=== PATIENT | male | born 1945 | race Caucasian/White ===

== ENCOUNTER → 2020-07-18 13:44 | Outpatient (CLI) | payer MEDICARE, OTHER, SELFPAY ==
[2020-06-29 13:30] VITALS: BMI 24.9
--- NOTE | 2020-07-18 13:45 | ECHOD_ITS ---
Reason For Study: MURMUR Procedure This was a 2D Doppler, Color Flow transthoracic echocardiogram. The exam was of adequate technical quality. Exam performed in department. Left Ventricle Normal LV size. Left ventricular systolic function is normal. The estimated ejection fraction is 60 %. Diastolic function is indeterminate. No regional wall motion abnormalities noted. Right Ventricle Normal RV size. ICD or pacer leads identified within the right ventricle. Normal systolic function. Atria Normal left atrium. Normal right atrium. ICD or pacer leads identified within the right atrium. No doppler evidence for ASD. Mitral Valve There is no mitral annular calcification. Equivocal mitral valve prolapse. Mild (1+) mitral valve insufficiency. Tricuspid Valve Normal tricuspid valve. Trivial tricuspid valve insufficiency. Right ventricular systolic pressure estimated to be 22 mmHg. Aortic Valve Trisinus/trileaflet aortic valve. Mild diffuse aortic valve thickening. Mild diffuse aortic valve calcification. Aortic valve sclerosis/mild aortic valve stenosis. Pulmonic Valve The pulmonic valve is not well visualized. Trivial pulmonic valve insufficiency. Great Vessels Mildly dilated aortic root. Pericardium/Pleural No pericardial effusion. MMode/2D Measurements & Calculations LVIDd: 4.8 cm IVSd: 1.1 cm LVOT diam: 2.0 cm LVIDs: 3.3 cm LVPWd: 1.1 cm LVOT area: 3.2 cm2 RVDd: 4.2 cm FS: 32.5 % Ao root diam: 4.3 cm LAV(MOD-bp): 68.8 ml LA A4 area: 17.7 cm2 LAV(MOD-bp) Indexed: 37.3 ml/m2 LAV(MOD-sp2): 82.8 ml LAV(MOD-sp4): 49.9 ml LA dimension(2D): 4.6 cm RA A4 area: 16.7 cm2 Time Measurements MV dec time: 0.27 sec Doppler Measurements & Calculations MV E max jesus: 61.2 cm/sec Lat Peak E' Jesus: 9.5 cm/sec Med Peak E' Jesus: 5.4 cm/sec MV A max jesus: 59.9 cm/sec E/E' lat: 6.5 E/E' med: 11.3 MV E/A: 1.0 Ao V2 max: 196.0 cm/sec LV V1 max: 125.3 cm/sec SV(LVOT): 89.1 ml Ao max P.4 mmHg LV V1 max P.3 mmHg Ao V2 mean: 134.1 cm/sec LV V1 mean P.3 mmHg Ao mean P.1 mmHg LV V1 mean: 85.4 cm/sec Ao V2 VTI: 42.9 cm LV V1 VTI: 27.6 cm JESSICA(I,D): 2.1 cm2 JESSICA(V,D): 2.1 cm2 PA V2 max: 91.3 cm/sec TR max jesus: 217.1 cm/sec TR max P.9 mmHg Interpretation Summary Left ventricular systolic function is normal. The estimated ejection fraction is 60 %. Equivocal mitral valve prolapse. Mild (1+) mitral valve insufficiency. Trivial tricuspid valve insufficiency. Aortic valve sclerosis/mild aortic valve stenosis. Trivial pulmonic valve insufficiency. Mildly dilated aortic root. Right ventricular systolic pressure estimated to be 22 mmHg. Diastolic function is indeterminate. ICD or pacer leads identified within the right atrium ICD or pacer leads identified within the right ventricle. Ordering Physician: Miguel Villar Referring Physician: CARI OTERO Performed By: Nan March, RDCS, RVT
== END ==
PROVIDERS: PCP Family Medicine; Referring Provider Internal Medicine Cardiovascular Disease; Visit Provider Internal Medicine Cardiovascular Disease
DX: R55 Syncope and collapse (principal); R01.1 Cardiac murmur, unspecified
CPT/HCPCS: 93306

== ENCOUNTER → 2020-07-28 13:44 | Outpatient (CLI) | payer MEDICARE, OTHER, SELFPAY ==
[2020-06-29 13:30] VITALS: BMI 24.9
--- NOTE | 2020-07-28 13:48 | CT_ITS ---
STUDY: CT CHEST WITH CONTRAST REASON FOR EXAM: Male, 74 years old. Aortic root dilatation. Hx of pacemaker. HTN-rx controlled. RADIATION DOSAGE (If Supplied By Facility): CTDIvol = ( 11.95 ) mGy, DLP = ( 408.89 ) mGycm TECHNIQUE: Transaxial imaging was performed following intravenous administration of IV 100mL Isovue-300. Multiplanar coronal and sagittal images were reformatted. Individualized dose optimization techniques were used for this CT. COMPARISON: None. FINDINGS: Small benign-appearing bilateral axillary lymph nodes. Calcified granulomas in the left lower lobe. There is no demonstrated pleural abnormality. Normal heart and pericardium. A left-sided pacemaker device is seen. Normal mediastinum. Normal hilar regions. Normal enhanced pulmonary arteries. The ascending aorta measures 40.6 mm in transverse dimension at the root of the aorta. Atherosclerotic plaque formation of the aortic arch. Calcific plaques in the descending thoracic aorta with minimal mural thrombus. There are mild degenerative changes of the thoracic spine. There is a 2.7 cm x 2.6 cm cyst in the dome of the right lobe of the liver. CT/Chest WITH Contrast IMPRESSION: The root of the descending aorta measures 40.6 mm. Minimal mural thrombus is seen in the descending thoracic aorta. Electronically Signed: Long Borjas, at 15:06 EDT , Service support ,
[2020-07-28 14:00] LABS: EGFR FINGERSTICK > 60.0000 mL/min (>60)
== END ==
PROVIDERS: PCP Family Medicine; Referring Provider Internal Medicine Cardiovascular Disease; Visit Provider Internal Medicine Cardiovascular Disease
DX: I77.810 Thoracic aortic ectasia (principal)
CPT/HCPCS: 71260; Q9967

== ENCOUNTER → 2020-09-04 15:12 | Outpatient (CLI) | payer MEDICARE, OTHER, SELFPAY ==
--- NOTE | 2020-09-04 15:19 | RAD_ITS ---
STUDY: X-RAY - LUMBOSACRAL SPINE REASON FOR EXAM: Male, 74 years old. Low back pain TECHNIQUE: 7 view(s) of the lumbosacral spine were obtained including oblique views and flexion and extension views.. COMPARISON: None FINDINGS: Normal lumbar lordosis. There is a levoscoliosis of the lumbar spine. There is normal alignment of the vertebrae. There is multilevel endplate spondylosis of the lumbar vertebrae. There is multi-level degenerative disc disease with multi-level disc space narrowing. Facet joint osteoarthritis. Normal bilateral sacral ala, sacroiliac joints, and visualized sacrum. There is atherosclerotic calcification of the abdominal aorta without a demonstrated aneurysm. RAD/L/S Spine Bending Flex/Ext IMPRESSION: Degenerative changes of the spine, as detailed above. Electronically Signed: Long Borjas, at 15:35 EDT , Service support ,
== END ==
PROVIDERS: PCP Family Medicine; Referring Provider Family Medicine; Visit Provider Family Medicine
DX: M54.5 Low back pain (principal)
CPT/HCPCS: 72120

== ENCOUNTER → 2020-09-05 08:09 | Outpatient (CLI) | payer MEDICARE, OTHER, SELFPAY ==
[2020-06-29 13:30] VITALS: BMI 24.9
[2020-09-05 10:55] LABS: AST(SGOT) 23 U/L (15-37); Alanine Aminotransfer ALT/SGPT 31 U/L (16-61); Albumin, Serum 3.7 g/dL (3.2-5.0); Alkaline Phosphatase 47 U/L (45-117); Anion Gap 6 (5-15); BUN 16 mg/dL (7-18); CRP 4.71 mg/L (0.0-3.0); Calcium,Total 9.2 mg/dL (8.5-10.1); Chloride 106 mmol/L (98-107); Cholesterol 131 mg/dL (200); Creatinine, Serum 1.14 mg/dL (0.70-1.30); EST Glomerular Filtration Rate 66 mL/min (>60); Est Glom Filt Rate - Afr Amer 80 mL/min (>60); Globulin 3.8 g/dL (2.2-4.2); Glucose 110 mg/dL (74-106); High Density Lipoprotein 59 mg/dL; PSA,Total- Diagnostic 0.61 ng/mL (0.0-4.0); Potassium 4.3 mmol/L (3.5-5.1); Protein, Total 7.5 g/dL (6.4-8.2); Sodium Level 142 mmol/L (136-145); Thyroid Stim Hormone (TSH) 0.53 uIU/mL (0.358-3.74); Triglycerides 89 mg/dL; Very Low Density Lipoprotein 18 mg/dL (5-40)
[2020-09-05 11:15] LABS: Microalbumin,Random Urine < 5.0 mg/L (NO RANGE EST.)
[2020-09-06 16:08] LABS: PROEL- A/G Ratio 1.2 (0.7-1.7); PROEL- Albumin 3.8 g/dL (2.9-4.4); PROEL- Alpha-1 Globulin 0.2 g/dL (0.0-0.4); PROEL- Alpha-2 Globulin 0.8 g/dL (0.4-1.0); PROEL- Beta Globulin 0.8 g/dL (0.7-1.3); PROEL- Gamma Globulin 1.3 g/dL (0.4-1.8); PROEL- Globulin, Total 3.2 g/dL (2.2-3.9)
== END ==
PROVIDERS: PCP Family Medicine; Referring Provider Family Medicine; Visit Provider Family Medicine
DX: I10 Essential (primary) hypertension (principal); N40.0 Benign prostatic hyperplasia without lower urinary tract symptoms; L65.9 Nonscarring hair loss, unspecified; M54.5 Low back pain
CPT/HCPCS: 36415; 80053; 80061; 82043; 82570; 84153; 84165; 84443; 86140

== ENCOUNTER → 2020-09-26 12:53 | Outpatient (CLI) | payer MEDICARE, OTHER, SELFPAY ==
[2020-09-18 12:57] VITALS: BMI 25.2
--- NOTE | 2020-09-26 12:54 | RAD_ITS ---
HISTORY: BONE SPUR SEEN ON PREVIOUS XRAY, CONTINUED SHARP PAIN LOWER BACK ADDITIONAL HISTORY: None provided. EXAMINATION/TECHNIQUE: XR Bone Survey Complete Number of images including paperwork: 25 including AP and lateral views of the skull, AP and lateral views of the cervical, thoracic and lumbar spine, AP views of the bilateral ribs, AP pelvis and AP views of the upper and lower extremities bilaterally. COMPARISON: Lumbar spine 09/04/2020 FINDINGS: BONES: No acute fracture. No suspicious bone lesion detected. JOINTS: No subluxation. Degenerative changes noted in the spine, particularly the cervical and lumbar spine. Mild degenerative changes of the shoulders, sacroiliac joints and hips. SOFT TISSUES: No distinct foreign body. Vascular calcifications. Pacemaker with left-sided generator. RAD/Bone Survey Comp(Axial&Append) IMPRESSION: Degenerative changes without acute osseous abnormality. No suspicious bone lesion detected. at 2225 Reported and signed by: Nikia Arzola MD Electronically Signed: Nikia Arzola MD at 22:24 EST Tel , Service support ,
--- NOTE | 2020-09-26 14:35 | BD_ITS ---
STUDY: DUAL ENERGY X-RAY ABSORPTIOMETRY / DXA REASON FOR EXAM: Male, 74 years old. TAYA OF 1-1.5 INCHES -- MONOCLONAL PROTEINS -- HX OF SMOKING- QUIT 50 YRS AGO -- TAKES 1000MG CALCIUM + MULTIVITAMIN -- DOES MODERATE AMOUNT OF EXERCISE TECHNIQUE: Bone Mineral Density (BMD) measurements of lumbar spine and bilateral hips were obtained. COMPARISON: None. FINDINGS: Lumbar Spine (L1-L4): g/cm2 (1.376) / T-score (1.4) / Z-score (2.0) Findings are suggestive of normal bone density with a low fracture risk. Left Femur Total: g/cm2 (1.055) / T-score (-0.3) / Z-score (0.7) Left Femoral Neck: g/cm2 (0.994) / T-score (-0.6) / Z-score (0.9) Right Femur Total: g/cm2 (1.103) / T-score (0.0) / Z-score (1.0) Right Femoral Neck: g/cm2 (1.002) / T-score (-0.5) / Z-score (0.9) BD/Dexa Bone Density Study IMPRESSION: The patient is considered normal as outlined below according to World Bryan Organization (WHO) criteria with a low fracture risk. Reference Information: The T-score is the number of standard deviations above or below the standard which is normal for young adults at their peak bone mineral density. The World Health Organization (WHO) interprets the T-scores as follows: Above -1 Normal bone density Between -1 and -2.5 Osteopenia Equal to / or below -2.5 Osteoporosis As a practical clinical guideline, osteopenia may be graded as follows: Mild -1 through -1.5 Moderate -1.6 through -2.0 Severe -2.1 through -2.4 The Z-score is the number of standard deviations above or below age-matched controls. A Z-score of less than -1.5 would be considered abnormal. References: 1. NIH Osteoporosis and Related Bone Diseases www osteo.org 2. International Society for Clinical Densitometry www iscd.org 3. National Osteoporosis Foundation www nof.org Electronically Signed: Long Borjas, at 15:31 EST , Service support ,
== END ==
PROVIDERS: PCP Family Medicine; Referring Provider Internal Medicine Medical Oncology; Visit Provider Internal Medicine Medical Oncology
DX: D47.2 Monoclonal gammopathy (principal); M81.0 Age-related osteoporosis without current pathological fracture; Z87.891 Personal history of nicotine dependence
CPT/HCPCS: 77075; 77080

== ENCOUNTER 2020-11-09 11:00 | Outpatient (RCR) | payer MEDICARE, OTHER, SELFPAY ==
[2020-06-29 13:30] VITALS: BMI 24.9
--- NOTE | 2020-09-08 16:16 | HP.PTEVAL_ITS ---
Patient's Visit Information OCHOA FUNEZ is a 74 year old M referred to Physical Therapy by Dr. Wayne Zimmerman MD with a diagnosis of BACK PAIN. Date of Evaluation: 09/08/20 Physical Therapist: Gabi Vizcaino PT, Cert MDT - Visit Plan Frequency: 1x/Week Duration: 10 WKS Plan: PACEMAKER*. POSTURE CORRECTION/STRENGTHENING, INSTRUCTION IN APPROPRIATE BODY MECHANICS AND ACTIVITY MODIFICATIONS. DLS STARTING WITH A NEUTRAL SPINE PROGRESSING ROM TOLERATED. EDUARDO LE ROM, STRETCHING AND STRENGTHENING. HEP INSTRUCTION. 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 Present symptoms: LOW BACK PAIN. PATIENT DENIES EDUARDO LE SX'S. Present since: ABOUT 10 YEARS. Pain Scale: WORST 10/10, LEAST 0/10. Currently: 0/10. Commenced as a result of: NO APPARENT REASON. Symptoms at onset: LOW BACK. Worse: GETTING UP IN THE MORNING. OCCASSIONALLY RANDOMLY HITS BRIEFLY. Better: TYLONOL. Disturbed sleep: NO. Previous history/Previous treatment: PHYSICAL THERAPY FOR SCIATICA 20 YEARS AGO AND 10 YEARS AGO. Coughing/sneezing/straining: NEGATIVE. Gait: NORMAL. Difficulty initiating urinatin: NO. Accidents: NO. Unexplained weight loss: NO. Imaging: RECENT LOW BACK X-RAY - DEGENERATIVE CHANGES OF THE SPINE. PMH: PACEMAKER TIA 2005. HTN. HIGH CHOLESTEROL. ON BLOOD THINNER. ALSO ON PROSTRATE MEDICINE. - Objective Sitting/Standing Posture: FAIR. Lordosis: REDUCED. Lateral shift: NO. Relevant shift: N/A. Active Correction of posture: PROVOKES MILD RIGHT LBP. Other Observations: INDEP GAIT AND TRANSFERS. Motor deficit: EDUARDO LE'S 5/5 WITH MMTING. Sensory deficit: EDUARDO LE LIGHT TOUCH SENSATION INTACT AND SYMMETRICAL. ROM deficit: TIGHT EDUARDO HS'S AND GASTROC SOLEUS COMPLEX'S. Reflexes: NT. Dural Signs: NEGATIVE EDUARDO LE'S. Lumbar mvmt loss: flex - MOD - NE. ext - MOD TO FRANSISCO - MILD INCREASE IN RIGHT LBP. R SG - MOD - MILD INCREASE IN RIGHT LBP. L SG - MIN - NE. Core strength: FAIR. Palpation: NO ACUTE LUMBOSACRAL OR PARASPINAL TENDERNESS. TREATMENT: NEUROMUSCULAR REEDUCATION - RETRAINING OF MVMT AND POSTURE FOR SITTING, LYING AND STANDING ACTIVITIES. - Goals Goal 1:: DECREASE C/O BACK PAIN Goal Time Frame: 8-12 Weeks Goal 2:: IMPROVE FUNCTIONAL LUMBAR ROM AND STRENGTH Goal Time Frame: 8-12 Weeks Goal 3:: INSTRUCT IN PROPHYLAXIS Goal Time Frame: 8-12 Weeks - Anticipated Interventions Patient/Client Instruction: Educate patient on: Condition, Plan of Care, Risk Factors, Benefits of Fitness Program For the Purpose of:: To improve self management Therapeutic Exercise to Include: Strength training, Body mechanics, Postural training, Flexibilty training, Neuromotor development, Dynamic Lumbar Stabilization For the Purpose of:: To decrease pain, To increase tolerance to activity/condition/position, To improve ability of physical actions for home/community/work/leisure Thank you for the opportunity to evaluate your patient. For Medicare and Medicare HMO plans, please review the plan of care and approve it. It will need to be FAXED BACK to us at [phone] for Medicare purposes. For Medicare only, by signing this I certify the plan of care. Please let me know if there are questions or concerns regarding this plan of care. Physician Signature: Date:
--- NOTE | 2020-10-16 16:05 | HP.PTREVAL ---
Dr. Wayne Zimmerman MD, It has been my pleasure to treat OCHOA FUNEZ over the last 6 visits for BACK PAIN. Please see the progress note below for an update on the physical therapy plan of care! Subjective: PATIENT REPORTS THAT SINCE HE STARTED PT HE THOUGHT THE PAIN WAS GONE UNTIL FRIDAY MORNING. NO PAIN FOR ABOUT 4 WEEKS THOUGH AND PRIOR TO THERAPY PAIN HIT ABOUT ONCE A WEEK. PATIENT REPORTS HE HAS MADE CHANGES TO HIS POSTURE AND IS USING LUMBAR SUPPORT IN SITTING NOW. DOING HOME EX'S TOO. STATES IT IS DIFFICULT FOR HIM TO TELL FOR SURE WHAT PERCENT BETTER HE IS YET. I DEFINATELY WANT TO CONTINUE WITH PT/ISMAEL IF I CAN. PATIENT REPORTS HE HAS NOTICED THAT IF HE IS WORKING IN THE GARAGE HIS BACK DOESN'T START BOTHERING HIM NEAR MUCH. USE TO HAVE TO STOP AFTER ABOUT 30 MINUTES AND NOW CAN DO A FEW HOURS. GETTING BETTER AT THE HOME EX'S BUT SOME STILL VERY CHALLENGING BUT NOT PAINFUL. Objective/Function: PATIENT WAS SEEN TODAY FOR RE-ASSESSMENT OF PROGRESS TOWARD THE SET PT GOALS AND THE NEED FOR FURTHER PHYSICAL THERAPY VS READINESS FOR DISCHARGE. EVEN THOUGH THIS PATIENT HAS HAD THE PAIN HE CAME TO PT WITH FOR ABOUT 10 YEARS, HE IS IMPROVING. HE IS RESPONDING WELL TO PT AND BASED ON IMPROVEMENTS MADE AND ROOM FOR FUTHER IMPROVEMENT HE IS A GOOD CANDIDATE TO CONTINUE PT AT THIS TIME AND HE IS EXPRESSING THAT HE DOES WANT TO CONTINUE. UPON EXAM TODAY: Lumbar mvmt loss: flex - MOD - NE. ext - MOD - NE. R SG - MOD - NE. L SG - MIN - NE. Core strength: FAIR. PATIENT IS BECOMING INDEP WITH A HEP AND USE OF HIS HOME EQUIPMENT BUT IS ALSO CONSIDERING A GYM MEMBERSHIP. Plan Plan: PACEMAKER*. CONTINUE PT 1X A WK X 4 MORE VISITS. PATIENT IS CONSIDERING A GYM MEMBERSHIP. POSTURE CORRECTION/STRENGTHENING, INSTRUCTION IN APPROPRIATE BODY MECHANICS AND ACTIVITY MODIFICATIONS. DLS STARTING WITH A NEUTRAL SPINE PROGRESSING ROM TOLERATED. EDUARDO LE ROM, STRETCHING AND STRENGTHENING. HEP INSTRUCTION. Goals Goal 1:: DECREASE C/O BACK PAIN Goal Time Frame: 8-12 Weeks Goal 2:: IMPROVE FUNCTIONAL LUMBAR ROM AND STRENGTH Goal Time Frame: 8-12 Weeks Goal 3:: INSTRUCT IN PROPHYLAXIS Goal Time Frame: 8-12 Weeks Anticipated Interventions Patient/Client Instruction: Educate patient on: Condition, Plan of Care, Risk Factors, Benefits of Fitness Program For the Purpose of:: To improve self management Therapeutic Exercise to Include: Strength training, Body mechanics, Postural training, Flexibilty training, Neuromotor development, Dynamic Lumbar Stabilization For the Purpose of:: To decrease pain, To increase tolerance to activity/condition/position, To improve ability of physical actions for home/community/work/leisure Please do not hesitate to contact me at [phone] by phone or if you have questions or concerns regarding this new plan of care! Sincerely, Gabi Vizcaino, PT, Cert MDT
--- NOTE | 2020-11-09 11:41 | HP.PTDCSUM ---
It has been my pleasure to treat OCHOA FUNEZ referred by Dr. Wayne Zimmerman MD, with the diagnosis of BACK PAIN for a total of 10 visit(s). Discharge Date: 11/09/20 Please see the following information for a summary of their discharge status. Subjective: PATIENT REPORTS THAT HE HELPED HIS SON PUT A NEW FLOOR IN FOR 3 DAYS. PATIENT REPORTS COMPLIANCE WITH HIS HEP AND IT IS CHALLENGING ENOUGH AT THIS POINT. PATIENT HAS DECIDED TO JOIN [employer]. % Improvement: 100 Objective/Function: PATIENT WAS SEEN TODAY FOR RE-ASSESSMENT OF PROGRESS TOWARD THE SET PT GOALS AND THE NEED FOR FURTHER PHYSICAL THERAPY VS READINESS FOR DISCHARGE. ALL GOALS HAVE BEEN MET. PATIENT IS INDEP WITH BOTH HOME AND GYM EX PROGRAMS. HE WAS GIVEN HIS GYM EX LOG TODAY. PATIENT STILL HAS DECREASED LUMBAR ROM ALL PLANES BUT NO PAIN WITH TESTING TODAY AT INITIAL EVAL. HE IS A GOOD CANDIDATE FOR DISCHARGE FROM PT AT THIS TIME AND FOLLOW UP WITH DR. ZIMMERMAN NEEDED. UPON EXAM TODAY: Lumbar mvmt loss: flex - MOD - NE. ext - MOD TO FRANSISCO - NE. R SG - MOD - NE. L SG - MIN - NE Goal 1:: DECREASE C/O BACK PAIN Goal Progress: Goal Met Goal 2:: IMPROVE FUNCTIONAL LUMBAR ROM AND STRENGTH Goal Progress: Goal Met Goal 3:: INSTRUCT IN PROPHYLAXIS Goal Progress: Goal Met Plan: PACEMAKER*. CONTINUE PT 1X A WK X 4 MORE VISITS. PATIENT IS CONSIDERING A GYM MEMBERSHIP. POSTURE CORRECTION/STRENGTHENING, INSTRUCTION IN APPROPRIATE BODY MECHANICS AND ACTIVITY MODIFICATIONS. DLS STARTING WITH A NEUTRAL SPINE PROGRESSING ROM TOLERATED. EDUARDO LE ROM, STRETCHING AND STRENGTHENING. HEP INSTRUCTION. If there are questions or concerns regarding this patient's physical therapy, please feel free to call me at [phone]. Thank you for the referral of this patient. Sincerely, Gabi Vizcaino, PT, Cert MDT
== END 2020-11-09 19:00 | disposition home or self-care (01) ==
LOC: PT 11:00
PROVIDERS: PCP Family Medicine; Referring Provider Family Medicine; Visit Provider Family Medicine
DX: M54.9 Dorsalgia, unspecified (principal)
CPT/HCPCS: 97110; 97112; 97162; 97164; 97530

== ENCOUNTER → 2021-03-29 11:23 | Outpatient (CLI) | payer MEDICARE, OTHER, SELFPAY ==
[2020-10-02 13:02] VITALS: BMI 25.5
--- NOTE | 2021-03-29 11:28 | RAD_ITS ---
STUDY: X-RAY - CERVICAL SPINE REASON FOR EXAM: Male, 75 years old. Cervical pain. TECHNIQUE: 5 view(s) of the cervical spine were obtained. COMPARISON: None FINDINGS: There are degenerative changes of the anterior atlantoaxial articulation. Normal odontoid process. Normal cervical lordosis. Normal vertebral bodies and endplates. Normal disc space heights. There is no evidence of neural foraminal narrowing. There is no fracture or loss of vertebral height. There is maintenance of normal alignment. The soft tissue structures are unremarkable. RAD/Cerv Spine 4 or 5 Views IMPRESSION: Essentially normal CT of the cervical spine. Electronically Signed: Jake Hernandez DO at 22:46 EDT Tel [phone], Service support ,
== END ==
PROVIDERS: PCP Family Medicine; Referring Provider Family Medicine; Visit Provider Family Medicine
DX: M54.2 Cervicalgia (principal)
CPT/HCPCS: 72050

== ENCOUNTER 2021-05-10 09:30 | Outpatient (RCR) | payer MEDICARE, OTHER, SELFPAY ==
[2020-10-02 13:02] VITALS: BMI 25.5
[2021-04-02 13:34] VITALS: BMI 25.3
--- NOTE | 2021-04-05 09:00 | HP.PTEVAL_ITS ---
Patient's Visit Information OCHOA FUNEZ is a 75 year old M referred to Physical Therapy by Dr. Wayne Zimmerman MD with a diagnosis of CHRONIC CERVICALGIA. Date of Evaluation: 04/05/21 Physical Therapist: Gabi Vizcaino PT, Cert MDT - Visit Plan Frequency: 1-2x /Week Duration: 4-6 Weeks Plan: POSTURE CORRECTION/STRENGTHENING, INSTRUCTION IN APPROPRIATE BODY MECHANICS AND ACTIVITY MODIFICATIONS. EDUARDO UE ROM, STRETCHING AND STRENGTHENING. HEP INSTRUCTION. TRY THE FOLLOWING EXS FOR HEP TOLERATED: REP RET IN SITTING. REP RET IN LYING. SCAP SQUEEZES. DEEP NECK FLEXOR LIFT. PRONE W'S. UE WALL SLIDES. PRONE ROWS. UE TBAND WALL WALKS. ANTERIOR/MIDDLE SCALENE STRETCH. UPPER TRAP STRETCH. LEVATOR SCAPULAE STRETCH. CHEST/PEC MAJOR AND MINOR STRETCH - Subjective Work/Leisure: RETIRED. Disability: NO. Present symptoms: EUDARDO NECK PAIN. EDUARDO SHOULDER PAIN. HEADACHE. Present since: CHRONIC - 20 YEARS. Pain Scale: Worst - 6/10 Least - /10. Currently: 11/26. Commenced as a result of: NO APPARENT REASON. Symptoms at onset: NECK PAIN. Worse: LOOKING TO THE LEFT OR THE RIGHT. WORKING IN THE [place] AND LEANING OVER WORKBENCH. AT NIGHT. Better: SITTING STILL LOOKING FORWARD. Disturbed sleep: YES. Previous history/Previous treatment: UNREMARKABLE. This episode: X-RAYS AND PT CONSULT. Dizziness: NO. Tinnitis: NO. Nausea: NO. Shortness of Breath: NO. Difficulty Swollowing: YES - HAS BEEN GOING ON FOR AT LEAST 20 YEARS. HAS HAD A SWOLLING STUDY AND STATES THEY DIDN'T FIND ANYTHING SO HE IS JUST CAREFUL. Gait: NORMAL. Accidents: NO. Unexplained weight loss: NO. Imaging: RECENT NORMAL NECK X-RAY. PMH/Recent major surgery: *PACEMAKER*. HIGH CHOLESTEROL, HTN, BLOOD THINNER. LOW BACK PAIN. OTHER: [facility] [facility] COMING ABOUT 3 TIMES A WEEK DOING ROUTINE GIVEN DURING PHYSICAL THERAPY FOR HIS BACK. STATES HIS BACK IS GETTING STRONGER. - Objective Sitting Posture/Standing Posture: POOR. DECREASED LORDOSIS, FH, RS. Active Correction of posture: WORSE. Other Observations: INDEP GAIT AND TRANSFERS. Motor deficit: 75 LBS RIGHT UE AND 85 LBS LEFT GRIB STRENGTH. Sensory deficit: EDUARDO UE LIGHT TOUCH SENSATION INTACT AND SYMMETRICAL. ROM deficit: EDUARDO UE'S WFL. Dural Signs: NEGATIVE EDUARDO UE'S. Cervical Mvmt Loss: Flex: NIL. Pro: NIL. Ext: MOD. Ret: MOD. RSB: FRANSISCO. LSB: FRANSISCO. R Rot: MOD. L Rot: MOD. PATIENT C/O INCREASED NECK PAIN WITH ROM TESTING ALL PLANES EXCEPT FLEX AND PROTRACTION. Postural strength: FAIR. Palpation: NO ACUTE CERVICAL, UPPER THORACIC OR OCCIPUT TENDERNESS. INCREASED MUSCLE TONE EDUARDO UT'S. TREATMENT: NEUROMUSCULAR REEDUCATION - RETRAINING OF MVMT AND POSTURE FOR SITTING, LYING AND STANDING ACTIVITIES. INSTRUCTED IN TRIAL OF NIGHT ROLL IN PILLOW TO SUPPORT CERVICAL LORDOSIS. INITIATED HEP WITH SUPINE ISO RETRACTION. - Goals Goal 1:: DECREASE C/O HEAD, NECK AND SHLD PAIN Goal Time Frame: 4-6 Weeks Goal 2:: IMPROVE PERSONAL CARE, READING, SLEEP, WORK, DRIVING AND RECREATIONAL FUNCTION Goal Time Frame: 4-6 Weeks Goal 3:: INSTRUCT IN PROPHYLAXIS Goal Time Frame: 4-6 Weeks - Anticipated Interventions Patient/Client Instruction: Educate patient on: Condition, Plan of Care, Risk Factors For the Purpose of:: To improve self management Therapeutic Exercise to Include: Strength training, Body mechanics, Postural training, Flexibilty training, Neuromotor development, Scapular Strength/Stabilization For the Purpose of:: To decrease pain, To increase ROM, To improve muscle performance and motor function, To increase tolerance to activity/condition/position, To improve ability of physical actions for home/community/work/leisure Thank you for the opportunity to evaluate your patient. For Medicare and Medicare HMO plans, please review the plan of care and approve it. It will need to be FAXED BACK to us at [phone] for Medicare purposes. For Medicare only, by signing this I certify the plan of care. Please let me know if there are questions or concerns regarding this plan of care. Physician Signature: Date:___
--- NOTE | 2021-04-05 15:21 | HP.PTEVAL ---
Patient's Visit Information OCHOA FUNEZ is a 75 year old M referred to Physical Therapy by Dr. Wayne Zimmerman MD with a diagnosis of CHRONIC CERVICALGIA. Date of Evaluation: 04/05/21 Physical Therapist: Gabi Vizcaino PT, Cert MDT - Visit Plan Frequency: 1-2x /Week Duration: 4-6 Weeks Plan: *PACEMAKER*. POSTURE CORRECTION/STRENGTHENING, INSTRUCTION IN APPROPRIATE BODY MECHANICS AND ACTIVITY MODIFICATIONS. EDUARDO UE ROM, STRETCHING AND STRENGTHENING. HEP INSTRUCTION. TRY THE FOLLOWING EXS FOR HEP TOLERATED: REP RET IN SITTING. REP RET IN LYING. SCAP SQUEEZES. DEEP NECK FLEXOR LIFT. PRONE W'S. UE WALL SLIDES. PRONE ROWS. UE TBAND WALL WALKS. ANTERIOR/MIDDLE SCALENE STRETCH. UPPER TRAP STRETCH. LEVATOR SCAPULAE STRETCH. CHEST/PEC MAJOR AND MINOR STRETCH - Subjective Work/Leisure: RETIRED. Disability: NO. Present symptoms: EDUARDO NECK PAIN. EDUARDO SHOULDER PAIN. HEADACHE. Present since: CHRONIC - 20 YEARS. Pain Scale: Worst - 6/10 Least - /10. Currently: 11/26. Commenced as a result of: NO APPARENT REASON. Symptoms at onset: NECK PAIN. Worse: LOOKING TO THE LEFT OR THE RIGHT. WORKING IN THE [place] AND LEANING OVER WORKBENCH. AT NIGHT. Better: SITTING STILL LOOKING FORWARD. Disturbed sleep: YES. Previous history/Previous treatment: UNREMARKABLE. This episode: X-RAYS AND PT CONSULT. Dizziness: NO. Tinnitis: NO. Nausea: NO. Shortness of Breath: NO. Difficulty Swollowing: YES - HAS BEEN GOING ON FOR AT LEAST 20 YEARS. HAS HAD A SWOLLING STUDY AND STATES THEY DIDN'T FIND ANYTHING SO HE IS JUST CAREFUL. Gait: NORMAL. Accidents: NO. Unexplained weight loss: NO. Imaging: RECENT NORMAL NECK X-RAY. PMH/Recent major surgery: *PACEMAKER*. HIGH CHOLESTEROL, HTN, BLOOD THINNER. LOW BACK PAIN. OTHER: [employer] COMING ABOUT 3 TIMES A WEEK DOING ROUTINE GIVEN DURING PHYSICAL THERAPY FOR HIS BACK. STATES HIS BACK IS GETTING STRONGER. - Objective Sitting Posture/Standing Posture: POOR. DECREASED LORDOSIS, FH, RS. Active Correction of posture: WORSE. Other Observations: INDEP GAIT AND TRANSFERS. Motor deficit: 75 LBS RIGHT UE AND 85 LBS LEFT GRIB STRENGTH. EDUARDO UE'S GROSSLY 5/5 WITH MMT'ING. Sensory deficit: EDUARDO UE LIGHT TOUCH SENSATION INTACT AND SYMMETRICAL. ROM deficit: EDUARDO UE'S WFL. Dural Signs: NEGATIVE EDUARDO UE'S. Cervical Mvmt Loss: Flex: NIL. Pro: NIL. Ext: MOD. Ret: MOD. RSB: FRANSISCO. LSB: FRANSISCO. R Rot: MOD. L Rot: MOD. PATIENT C/O INCREASED NECK PAIN WITH ROM TESTING ALL PLANES EXCEPT FLEX AND PROTRACTION. Postural strength: FAIR. Palpation: NO ACUTE CERVICAL, UPPER THORACIC OR OCCIPUT TENDERNESS. INCREASED MUSCLE TONE EDUARDO UT'S. TREATMENT: NEUROMUSCULAR REEDUCATION - RETRAINING OF MVMT AND POSTURE FOR SITTING, LYING AND STANDING ACTIVITIES. INSTRUCTED IN TRIAL OF NIGHT ROLL IN PILLOW TO SUPPORT CERVICAL LORDOSIS. INITIATED HEP WITH SUPINE ISO RETRACTION. - Goals Goal 1:: DECREASE C/O HEAD, NECK AND SHLD PAIN Goal Time Frame: 4-6 Weeks Goal 2:: IMPROVE PERSONAL CARE, READING, SLEEP, WORK, DRIVING AND RECREATIONAL FUNCTION Goal Time Frame: 4-6 Weeks Goal 3:: INSTRUCT IN PROPHYLAXIS Goal Time Frame: 4-6 Weeks - Anticipated Interventions Patient/Client Instruction: Educate patient on: Condition, Plan of Care, Risk Factors For the Purpose of:: To improve self management Therapeutic Exercise to Include: Strength training, Body mechanics, Postural training, Flexibilty training, Neuromotor development, Scapular Strength/Stabilization For the Purpose of:: To decrease pain, To increase ROM, To improve muscle performance and motor function, To increase tolerance to activity/condition/position, To improve ability of physical actions for home/community/work/leisure Cryotherapy (ice pack, ice massage): Yes Thermo therapy (hot pack): Yes For the Purpose of:: To decrease pain, To improve nutrient delivery to tissue Thank you for the opportunity to evaluate your patient. For Medicare and Medicare HMO plans, please review the plan of care and approve it. It will need to be FAXED BACK to us at [phone] for Medicare purposes. For Medicare only, by signing this I certify the plan of care. Please let me know if there are questions or concerns regarding this plan of care. Physician Signature: Date:
--- NOTE | 2021-05-10 09:59 | HP.PTDCSUM ---
It has been my pleasure to treat OCHOA FUNEZ referred by Dr. Wayne Zimmerman MD, with the diagnosis of CHRONIC CERVICALGIA for a total of 10 visit(s). Discharge Date: Please see the following information for a summary of their discharge status. Subjective: PATIENT REPORTS INCREASED PAINFREE ROM. ABLE TO LOOK ON TRACTOR MUCH BETTER. LESS PAIN. PATIENT REPORTS HE THINKS IF HE CONTINUES HIS HOME EX'S HE CAN GET MORE IMPROVEMENT. Neck Pain Intensity (Out of 10): 0 % Improvement: 10 Objective/Function: PATIENT WAS SEEN TODAY FOR RE-ASSESSMENT OF PROGRESS TOWARD THE SET PT GOALS AND THE NEED FOR FURTHER PHYSICAL THERAPY VS READINESS FOR DISCHARGE. ALL PT GOALS HAVE BEEN MET AND PATIENT IS APPROPRIATE FOR DISCHARGE TO INDEP EX. HE IS AGREEABLE. HE IS INDEP WITH BOTH LAND AND GYM EX'S. HE IS REPORTING LESS PAIN AND HE DEMO'S INCREASED LEFT CERVICAL ROTATION ROM. Goal 1:: DECREASE C/O HEAD, NECK AND SHLD PAIN Goal Progress: Goal Met Goal 2:: IMPROVE PERSONAL CARE, READING, SLEEP, WORK, DRIVING AND RECREATIONAL FUNCTION Goal Progress: Goal Met Goal 3:: INSTRUCT IN PROPHYLAXIS Goal Progress: Goal Met Plan: *PACEMAKER*. POSTURE CORRECTION/STRENGTHENING, INSTRUCTION IN APPROPRIATE BODY MECHANICS AND ACTIVITY MODIFICATIONS. EDUARDO UE ROM, STRETCHING AND STRENGTHENING. HEP INSTRUCTION. TRY THE FOLLOWING EXS FOR HEP TOLERATED: REP RET IN SITTING. REP RET IN LYING. SCAP SQUEEZES. DEEP NECK FLEXOR LIFT. PRONE W'S. UE WALL SLIDES. PRONE ROWS. UE TBAND WALL WALKS. ANTERIOR/MIDDLE SCALENE STRETCH. UPPER TRAP STRETCH. LEVATOR SCAPULAE STRETCH. CHEST/PEC MAJOR AND MINOR STRETCH If there are questions or concerns regarding this patient's physical therapy, please feel free to call me at [phone]. Thank you for the referral of this patient. Sincerely, Gabi Viczaino, PT, Cert MDT
== END 2021-05-10 19:00 | disposition home or self-care (01) ==
LOC: PT 09:30
PROVIDERS: PCP Family Medicine; Referring Provider Family Medicine; Visit Provider Family Medicine
DX: M54.2 Cervicalgia (principal); G89.29 Other chronic pain
CPT/HCPCS: 97110; 97112; 97162; 97164

== ENCOUNTER → 2021-06-30 08:38 | Outpatient (CLI) | payer MEDICARE, OTHER, SELFPAY ==
[2021-06-29 15:30] VITALS: BMI 24.3
[2021-06-30 09:30] LABS: AST(SGOT) 22 U/L (15-37); Alanine Aminotransfer ALT/SGPT 32 U/L (16-61); Albumin, Serum 3.7 g/dL (3.2-5.0); Alkaline Phosphatase 50 U/L (45-117); Bilirubin, Direct 0.17 mg/dL (0.00-0.30); Cholesterol 129 mg/dL (200); Globulin 3.7 g/dL (2.2-4.2); High Density Lipoprotein 55 mg/dL; Protein, Total 7.4 g/dL (6.4-8.2); Triglycerides 41 mg/dL; Very Low Density Lipoprotein 8 mg/dL (5-40)
== END ==
PROVIDERS: PCP Family Medicine; Referring Provider Internal Medicine Cardiovascular Disease; Visit Provider Internal Medicine Cardiovascular Disease
DX: E78.00 Pure hypercholesterolemia, unspecified (principal)
CPT/HCPCS: 36415; 80061; 80076

== ENCOUNTER → 2021-07-06 13:52 | Outpatient (CLI) | payer MEDICARE, OTHER, SELFPAY ==
[2021-06-29 15:30] VITALS: BMI 24.3
--- NOTE | 2021-07-06 14:03 | ECHOD_ITS ---
Reason For Study: MURMUR Procedure This was a 2D Doppler, Color Flow transthoracic echocardiogram. The exam was of adequate technical quality. Exam performed in department. Left Ventricle Normal LV size. Left ventricular systolic function is normal. The estimated ejection fraction is 60 %. Diastolic function is indeterminate. No regional wall motion abnormalities noted. Right Ventricle Normal RV size. ICD or pacer leads identified within the right ventricle. Normal systolic function. Atria The left atrium is mildly enlarged. Normal right atrium. ICD or pacer leads identified within the right atrium. No doppler evidence for ASD. Mitral Valve There is no mitral annular calcification. Anterior leaflet diffuse mitral valve thickening. Mild (1+) mitral valve insufficiency. Tricuspid Valve Normal tricuspid valve. Trivial tricuspid valve insufficiency. Unable to estimate RV systolic pressure due to insufficient tricuspid regurgitant envelope. Aortic Valve Trisinus/trileaflet aortic valve. Mild diffuse aortic valve thickening. Mild diffuse aortic valve calcification. Aortic sclerosis, no stenosis. Pulmonic Valve The pulmonic valve is not well visualized. Trivial pulmonic valve insufficiency. Great Vessels Mildly dilated aortic root. Pericardium/Pleural No pericardial effusion. MMode/2D Measurements & Calculations LVIDd: 5.1 cm IVSd: 1.1 cm Ao root diam: 4.2 cm LVIDs: 3.0 cm LVPWd: 1.2 cm RVDd: 3.3 cm FS: 40.6 % LAV(MOD-bp): 66.9 ml LVAd ap4: 35.1 cm2 LVAd ap2: 30.9 cm2 LAV(MOD-bp) Indexed: 35.6 ml/m2 LVLd ap4: 8.3 cm LVLd ap2: 8.4 cm LAV(MOD-sp2): 71.7 ml EDV(MOD-sp4): 126.3 ml EDV(MOD-sp2): 98.4 ml LAV(MOD-sp4): 62.1 ml EDV(sp4-el): 126.2 ml EDV(sp2-el): 96.1 ml LVAs ap4: 19.7 cm2 LVAs ap2: 16.8 cm2 LVLs ap4: 7.0 cm LVLs ap2: 6.6 cm ESV(MOD-sp4): 47.4 ml ESV(MOD-sp2): 37.5 ml ESV(sp4-el): 46.9 ml ESV(sp2-el): 36.1 ml EF(MOD-sp4): 62.5 % EF(MOD-sp2): 61.9 % EF(sp4-el): 62.8 % SV(MOD-sp4): 78.9 ml SV(MOD-sp2): 61.0 ml SV(sp4-el): 79.3 ml LA dimension(2D): 4.2 cm LA A4 area: 19.5 cm2 RA A4 area: 16.6 cm2 Time Measurements MV dec time: 0.21 sec Doppler Measurements & Calculations MV E max jesus: 67.3 cm/sec Lat Peak E' Jesus: 9.6 cm/sec Med Peak E' Jesus: 8.0 cm/sec MV A max jesus: 41.2 cm/sec E/E' lat: 7.0 E/E' med: 8.5 MV E/A: 1.6 Ao V2 max: 133.1 cm/sec LV V1 max: 85.8 cm/sec PA V2 max: 93.1 cm/sec Ao max P.1 mmHg LV V1 max P.9 mmHg ECHO/Echo Complete Interpretation Summary Left ventricular systolic function is normal. The estimated ejection fraction is 60 %. The left atrium is mildly enlarged. Anterior leaflet diffuse mitral valve thickening. Mild (1+) mitral valve insufficiency. Trivial tricuspid valve insufficiency. Aortic sclerosis, no stenosis. Trivial pulmonic valve insufficiency. Mildly dilated aortic root. Unable to estimate RV systolic pressure due to insufficient tricuspid regurgita nt envelope. Diastolic function is indeterminate. ICD or pacer leads identified within the right atrium ICD or pacer leads identified within the right ventricle. Ordering Physician: Miguel Villar Referring Physician: Wayne Zimmerman Performed By: Haley Marina, DEMAR, RVT
== END ==
PROVIDERS: PCP Family Medicine; Visit Provider Internal Medicine Cardiovascular Disease
DX: I45.5 Other specified heart block (principal); I77.810 Thoracic aortic ectasia; I35.0 Nonrheumatic aortic (valve) stenosis; R00.1 Bradycardia, unspecified; E78.5 Hyperlipidemia, unspecified; R55 Syncope and collapse; Z95.0 Presence of cardiac pacemaker
CPT/HCPCS: 93306

== ENCOUNTER → 2022-07-05 | Outpatient (CLI) | payer MEDICARE, OTHER, SELFPAY ==
[2022-07-05 09:07] LABS: AST(SGOT) 19 U/L (15-37); Alanine Aminotransfer ALT/SGPT 26 U/L (16-61); Albumin, Serum 3.8 g/dL (3.2-5.0); Alkaline Phosphatase 42 U/L (45-117); Bilirubin, Direct 0.18 mg/dL (0.00-0.30); Cholesterol 132 mg/dL (200); Globulin 3.8 g/dL (2.2-4.2); High Density Lipoprotein 42 mg/dL; Protein, Total 7.6 g/dL (6.4-8.2); Triglycerides 119 mg/dL; Very Low Density Lipoprotein 24 mg/dL (5-40)
== END | disposition home or self-care (01) ==
LOC: LAB 08:02
PROVIDERS: PCP Family Medicine; Referring Provider Internal Medicine Cardiovascular Disease; Visit Provider Internal Medicine Cardiovascular Disease
DX: E78.5 Hyperlipidemia, unspecified (principal)
CPT/HCPCS: 36415; 80061; 80076

== ENCOUNTER → 2022-07-16 | Outpatient (CLI) | payer MEDICARE, OTHER, SELFPAY ==
--- NOTE | 2022-07-16 08:42 | ECHOD_ITS ---
Reason For Study: AV STENOSIS Procedure This was a 2D Doppler, Color Flow transthoracic echocardiogram. The exam was of adequate technical quality. Exam performed in department. Left Ventricle Normal LV size. Left ventricular systolic function is normal. The estimated ejection fraction is 60 %. No evidence for diastolic dysfunction. Right Ventricle Normal RV size. ICD or pacer leads identified within the right ventricle. Normal systolic function. Atria The left atrium is mildly enlarged. Normal right atrium. ICD or pacer leads identified within the right atrium. No doppler evidence for ASD. Mitral Valve There is no mitral annular calcification. Mild diffuse mitral valve thickening. The mitral papillary muscle appears thickened and/or calcified. Mild (1+) mitral valve insufficiency. Tricuspid Valve Normal tricuspid valve. Trivial tricuspid valve insufficiency. Unable to estimate RV systolic pressure due to insufficient tricuspid regurgitant envelope. Aortic Valve Trisinus/trileaflet aortic valve. Mild diffuse aortic valve thickening. Mild focal aortic valve calcification. Aortic sclerosis, no stenosis. Pulmonic Valve The pulmonic valve is not well visualized. Mild (1+) pulmonic valve insufficiency. Great Vessels Mildly dilated aortic root. Pericardium/Pleural No pericardial effusion. MMode/2D Measurements & Calculations LVIDd: 5.3 cm IVSd: 1.0 cm LVOT diam: 2.1 cm LVIDs: 3.6 cm LVPWd: 0.90 cm LVOT area: 3.6 cm2 RVDd: 3.7 cm FS: 31.1 % Ao root diam: 4.2 cm LAV(MOD-bp): 60.1 ml LVAd ap4: 29.4 cm2 LAV(MOD-bp) Indexed: 31.5 ml/m2 LVLd ap4: 8.1 cm LAV(MOD-sp2): 67.5 ml EDV(MOD-sp4): 89.2 ml LAV(MOD-sp4): 53.7 ml EDV(sp4-el): 90.4 ml LVAs ap4: 18.2 cm2 LVLs ap4: 6.9 cm ESV(MOD-sp4): 43.8 ml ESV(sp4-el): 40.8 ml EF(MOD-sp4): 50.8 % EF(sp4-el): 54.9 % SV(MOD-sp4): 45.3 ml SV(sp4-el): 49.6 ml LA A4 area: 19.1 cm2 LA dimension(2D): 4.5 cm RA A4 area: 17.1 cm2 Time Measurements MV dec time: 0.35 sec Doppler Measurements & Calculations MV E max jesus: 42.6 cm/sec Lat Peak E' Jesus: 6.9 cm/sec Med Peak E' Jesus: 4.2 cm/sec MV A max jesus: 44.4 cm/sec E/E' lat: 6.2 E/E' med: 10.2 MV E/A: 0.96 MV V2 max: 60.7 cm/sec Ao V2 max: 146.7 cm/sec MV max P.5 mmHg MV dec slope: 121.8 cm/sec2 Ao max P.6 mmHg MV V2 mean: 27.5 cm/sec Ao V2 mean: 99.5 cm/sec MV mean P.37 mmHg Ao mean P.7 mmHg MV V2 VTI: 21.6 cm Ao V2 VTI: 34.6 cm MVA(VTI): 3.5 cm2 JESSICA(I,D): 2.2 cm2 JESSICA(V,D): 2.1 cm2 LV V1 max: 85.2 cm/sec SV(LVOT): 75.7 ml PA V2 max: 83.8 cm/sec LV V1 max P.9 mmHg LV V1 mean P.5 mmHg LV V1 mean: 57.0 cm/sec LV V1 VTI: 21.0 cm ECHO/Echo Complete Interpretation Summary Left ventricular systolic function is normal. The estimated ejection fraction is 60 %. The left atrium is mildly enlarged. Mild diffuse mitral valve thickening. The mitral papillary muscle appears thickened and/or calcified. Mild (1+) mitral valve insufficiency. Trivial tricuspid valve insufficiency. Aortic sclerosis, no stenosis. Mild (1+) pulmonic valve insufficiency. Mildly dilated aortic root. Unable to estimate RV systolic pressure due to insufficient tricuspid regurgita nt envelope. No evidence for diastolic dysfunction. ICD or pacer leads identified within the right atrium ICD or pacer leads identified within the right ventricle. Ordering Physician: Miguel Villar Referring Physician: Miguel Villar Performed By: Nayeli Wright RCS
== END | disposition home or self-care (01) ==
LOC: CVS 08:38
PROVIDERS: PCP Family Medicine; Referring Provider Internal Medicine Cardiovascular Disease; Visit Provider Internal Medicine Cardiovascular Disease
DX: I35.0 Nonrheumatic aortic (valve) stenosis (principal); I77.810 Thoracic aortic ectasia; I49.5 Sick sinus syndrome; I45.5 Other specified heart block; Z95.0 Presence of cardiac pacemaker
CPT/HCPCS: 93306

== ENCOUNTER → 2023-03-24 | Outpatient (CLI) | payer MEDICARE, OTHER, SELFPAY ==
--- NOTE | 2023-03-24 09:10 | US_ITS ---
STUDY: ABDOMINAL ULTRASOUND - RIGHT UPPER QUADRANT REASON FOR VISIT: Male, 77 years old known liver cyst on CT 2019. Needs recheck TECHNIQUE: Ultrasound evaluation of the right upper quadrant was performed with real-time and static ghosh-scale imaging. TECHNICAL QUALITY: Adequate. COMPARISON: Comparison is made with prior CT scan of the abdomen dated July 28, 2020. FINDINGS: Liver: The liver measures 13.7 cm. There is normal echogenicity of the liver. The bile ducts are within normal limits. There is hepatic color flow. The direction of portal flow is hepatopetal. There is a 3.7 cm x 3.2 cm x 3.3 cm cyst in the right lobe. Gallbladder: Normal distended gallbladder. The gallbladder wall measures 2 mm. There is a negative sonographic Gonzalez''s sign. There is no pericholecystic fluid. There are no gallstones. Common Bile Duct (C.B.D.): The common bile duct measures 4 mm. Pancreas: Normal size of the head, body and tail of the pancreas. There is normal echogenicity of the pancreas. There is no demonstrated pancreatic mass or cyst. Right Kidney: Normal size of the right kidney. The right kidney measures 10.8 cm x 5.3 cm x 4.3 cm. Normal renal cortex. The right cortex measures 1.3 cm. There is no demonstrated renal mass or cyst. There is no right hydronephrosis. US/Abdomen Limited IMPRESSION: 3.7 cm x 3.2 cm x 3.3 cm cyst in the right lobe of the liver. Electronically Signed: Long Borjas MD at 14:23 EDT ,
== END | disposition home or self-care (01) ==
LOC: US 09:09
PROVIDERS: PCP Family Medicine; Referring Provider Family Medicine; Visit Provider Family Medicine
DX: K76.89 Other specified diseases of liver (principal)
CPT/HCPCS: 76705

== ENCOUNTER → 2023-09-08 | Outpatient (CLI) | payer MEDICARE, OTHER, SELFPAY ==
[2023-09-08 10:44] LABS: Microalbumin,Random Urine < 5.0 mg/L (NO RANGE EST.)
[2023-09-08 10:47] LABS: Anion Gap 5 (5-15); BUN 26 mg/dL (7-18); BUN/Creat Ratio 23.4 RATIO (10-20); Calcium,Total 9.8 mg/dL (8.5-10.1); Chloride 108 mmol/L (98-107); Creatinine, Serum 1.11 mg/dL (0.70-1.30); EST Glomerular Filtration Rate 68 mL/min (>60); Est Glom Filt Rate - Afr Amer 82 mL/min (>60); Glucose 101 mg/dL (74-106); PSA,Total - Annual Screen 1.06 ng/mL (0.00-4.00); Potassium 4.4 mmol/L (3.5-5.1); Sodium Level 141 mmol/L (136-145)
== END | disposition home or self-care (01) ==
LOC: MTLAB 08:42
PROVIDERS: PCP Family Medicine; Referring Provider Family Medicine; Visit Provider Family Medicine
DX: I10 Essential (primary) hypertension (principal); Z12.5 Encounter for screening for malignant neoplasm of prostate
CPT/HCPCS: 36415; 80048; 82043; 82570; 84153; G0103

== ENCOUNTER → 2024-03-19 | Outpatient (CLI) | payer MEDICARE, OTHER, SELFPAY ==
[2024-03-19 08:19] LABS: Absolute Lymphocyte Count 1.37 X10^3/uL (0.83-4.51); Absolute Neutrophil Count 1.5 X10^3/uL (2.0-7.7); Basophil# 0.02 X10^3/uL; Basophil% 0.5 % (0-1); Eosinophil# 0.42 X10^3/uL; Eosinophils% 10.9 % (0-5); Hematocrit 42.8 % (40-54); Hemoglobin 14.2 g/dL (13.0-16.5); Lymphocyte # 1.37 X10^3/ul (0.83-4.51); Lymphocyte % 35.7 % (19-41); Mean Corp Hgb Conc 33.2 g/dL (32-36); Mean Corpuscular Hgb 31.4 pg (27.0-32.0); Mean Corpuscular Volume 94.7 fL (80-94); Monocyte# 0.56 X10^3/uL; Monocyte% 14.6 % (0-10); NRBC Flagged by Analyzer 0 % (0-5); Neutrophil # 1.46 X10^3/uL (2.7-7.7); Platelet Count 164 K/mm3 (150-450); RBC Distribution Width CV 13.4 % (11.6-14.6); Red Blood Count 4.52 M/mm3 (4.6-6.2); White Blood Count 3.8 K/mm3 (4.4-11.0)
[2024-03-19 08:47] LABS: AST(SGOT) 28 U/L (15-37); Alanine Aminotransfer ALT/SGPT 36 U/L (16-61); Alkaline Phosphatase 40 U/L (45-117); Anion Gap 6 (5-15); BUN 46 mg/dL (7-18); BUN/Creat Ratio 35.1 RATIO (10-20); Calcium,Total 10.1 mg/dL (8.5-10.1); Chloride 106 mmol/L (98-107); Creatinine, Serum 1.31 mg/dL (0.70-1.30); EST Glomerular Filtration Rate 56 mL/min (>60); Est Glom Filt Rate - Afr Amer 68 mL/min (>60); Glucose 110 mg/dL (74-106); Potassium 4.7 mmol/L (3.5-5.1); Sodium Level 140 mmol/L (136-145)
[2024-03-23 14:09] LABS: Albumin 3.9 g/dL (2.9-4.4); Alpha-1-Globulins 0.2 g/dL (0.0-0.4); Alpha-2-Globulins 0.8 g/dL (0.4-1.0); Gamma Globulin 1.5 g/dL (0.4-1.8); IMMUNOFIXATION RESULT,S Comment: (.); Immunoglobulin A 240 mg/dL (61-437); Immunoglobulin G 1556 mg/dL (603-1613); Immunoglobulin M 203 mg/dL (15-143); PROEL- TOTAL PROTEIN 7.4 g/dL (6.0-8.5)
== END | disposition home or self-care (01) ==
PROVIDERS: PCP Family Medicine; Referring Provider Internal Medicine Hematology & Oncology; Visit Provider Internal Medicine Hematology & Oncology
DX: D70.9 Neutropenia, unspecified (principal); D47.2 Monoclonal gammopathy
CPT/HCPCS: 36415; 80053; 82784; 84165; 85025; 86334

== ENCOUNTER 2024-04-27 07:51 | Emergency (ER) | payer MEDICARE, OTHER, SELFPAY ==
[2024-04-27 07:52] VITALS: BP 145/66; PULSE 52; RESP 16; TEMP 36; O2SAT 100; BMI 23.3
--- NOTE | 2024-04-27 08:12 | EKG12_ITS ---
Test Reason : FALL Blood Pressure : / mmHG Vent. Rate : 054 BPM Atrial Rate : 054 BPM P-R Int : 174 ms QRS Dur : 094 ms QT Int : 408 ms P-R-T Axes : 014 -20 034 degrees QTc Int : 386 ms Sinus bradycardia Minimal voltage criteria for LVH, may be normal variant ( R in aVL ) Borderline ECG Confirmed by Miller Diaz [id number]), offline editor MADELINE NUR ([id number]) on 04/28/2024 8:55:35 AM Referred By: Confirmed By:Miller Diaz
--- NOTE | 2024-04-27 08:12 | CT_ITS ---
STUDY: CT CHEST WITHOUT CONTRAST REASON FOR EXAM: Male, 78 years old. Rib pain / chest pain after fall r/o bony injury RADIATION DOSAGE (If Supplied By Facility): CTDIvol = ( 14.05 ) mGy, DLP = ( 584.26 ) mGycm TECHNIQUE: Transaxial imaging was performed without the administration of intravenous contrast material. Multiplanar coronal and sagittal images were reformatted. Individualized dose optimization techniques were used for this CT. COMPARISON: Comparison is made with prior study dated July 28, 2020. FINDINGS: CHEST 4 mm calcified granuloma in the left lower lobe. Mild degree of increased markings at the lung bases slightly worse on the left lung base suggestive of scarring. Mild bronchiectasis in the posterior medial aspect of the left lower lobe. There is no demonstrated pleural abnormality. There are calcifications of the coronary arteries. A left-sided dual-chamber pacemaker is seen. There are small lymph nodes within the mediastinum, which are normal in size and morphology most compatible with reactive lymph hyperplasia. Normal hilar regions. Normal unenhanced pulmonary arteries. Normal aorta arch and descending thoracic aorta. There are multi-level degenerative changes of the thoracic spine. There is a 2.7 cm x 3.2 cm cyst in the upper aspect of the right lobe of the liver. Small hyperdense cyst in the upper pole of the left kidney. CT/Chest without Contrast IMPRESSION: Mild scarring at the lung bases slightly worse on the left side with some bronchiectasis. Calcified granuloma in the left lower lobe. Stable right hepatic cyst. Electronically Signed: Long Borjas MD at 8:52 EDT ,
--- NOTE | 2024-04-27 08:47 | ED.VIS.CHEST ---
HPI History of Present Illness Chief Complaint: Chest Other [facility] Medical History Aortic root dilatation Non-rheumatic mitral regurgitation Nonrheumatic aortic (valve) stenosis Essential hypertension Peyronie's disease Bradycardia Hyperlipidemia Hypertension CVA (cerebral vascular accident) Vasovagal syncope Sick sinus syndrome Sinus pause Presence of cardiac pacemaker Home Medications ?Medication ?Instructions ?Recorded ?Last Taken ?Type clopidogrel 75 mg tablet 75 mg PO DAILY 03/20/14 Unknown History lisinopril 10 mg tablet 10 mg PO DAILY 03/20/14 Unknown History cwhkfhnb-dhf-iunws acid 0.4 1 tab PO QDAY 03/31/18 Unknown History mg-lycopene 300 mcg-lutein 250 mcg tablet (Centrum Silver) simvastatin 40 mg tablet 40 mg PO DAILY 06/29/20 Unknown History calcium citrate 200 mg (950 mg) 400 mg PO BID 09/12/20 Unknown History tablet omega-3 fatty acids-fish oil 684 300 ea PO DAILY 09/12/20 Unknown History mg-1,200 mg capsule,delayed release wheat dextrin 3 gram/3.5 gram oral 1 ea PO DAILY 09/12/20 Unknown History powder packet ascorbic acid (vitamin C) 1,000 mg 2 g PO DAILY 07/04/22 Unknown History tablet acetaminophen 325 mg tablet 1,500 mg PO BID 03/30/24 Unknown History (Tylenol) protein shakes PO BID 03/30/24 Unknown History Allergy/AdvReac Type Severity Reaction Status Date / Time mold Allergy Unknown Unknown Verified 04/27/24 07:52 yeast, dried AdvReac Unknown Unknown Verified 04/27/24 07:52 Family History Father CAD (coronary artery disease) CVA (cerebral vascular accident) Mother CVA (cerebral vascular accident) Brother Hypertension Brother CAD (coronary artery disease) Surgical History History of surgical removal of skin lesion History of vasectomy Social History (Updated 03/30/24 @ 14:03 by Joan Rascon) Smoking Status: Former smoker Tobacco: How many years used: 4 alcohol intake: current substance use type: does not use aaron/sikhism: [place] seatbelt use: always do you feel safe at home: Yes EXAM Physical Exam Const Vital Signs: 04/27/24 07:52 04/27/24 09:00 Temperature 96.8 F L 97.6 F L Temperature Source Temporal Pulse Rate 52 L 64 Respiratory Rate 16 18 Blood Pressure 145/66 H 126/78 H Blood Pressure Mean 92 94 Pulse Ox 100 98 Oxygen Delivery Method [place] [facility] [place] Medical decision making narrative: HISTORY OF PRESENT ILLNESS: 78-year-old male presents mechanical fall from standing. Notes he tripped over a arrow yesterday. He fell down onto his chest and notes left-sided musculoskeletal chest pain. Denies any syncope or falls. Denies any shortness of breath. Denies any hemoptysis. REVIEW OF SYSTEMS: Pertinent positives: Chest wall pain Pertinent negatives: Shortness of breath, hemoptysis PHYSICAL EXAM: Nursing triage notes reviewed, Vital signs reviewed Primary Survey Airway: Intact Breathing: Bilateral breath sounds Circulation: Palpable bilateral femorals, Palpable bilateral radial, Palpable bilateral DP and Palpable bilateral PT Disability / Spine precautions GCS Score: Eye Openin Verbal Response: 5 Motor Response: 6 Secondary Survey Constitutional: Please see MDM Head: Atraumatic, Midface stable, NO jaw malocclusion, No Cephalohematoma, and No Lacerations noted Eye: Pupils equal round and reactive to light, Extraocular muscles intact and No periorbital ecchymosis or stepoff, no evidence of entrapment ENT: Oropharynx clear, no lacerations, no hemotympanum, no raccoon eyes or bo sign Cervical spine / Neck: No cervical spine bony tenderness, crepitance, or stepoff deformity Trachea midline Lungs: Clear to auscultation, No asymmetric rise and No crepitus, no flail chest Cardiac: Regular rate and rhythm and No murmurs Abdomen: Soft, Nontender and No rebound Pelvis: Pelvis stable to compression : No evidence of genital injury Back: No midline bony tenderness to thoracic/lumbar/sacral spines Neuro: At baseline, intact strength and sensation in bilateral upper and lower extremities. 2+ patellar reflexes bilaterally. Extremities: NO gross Deformities Psych: Normal affect Nursing triage notes reviewed, Vital signs reviewed MEDICAL DECISION MAKING: Chief Complaint: Chest wall pain External records reviewed: CT scan of the chest from 2019 shows minimal mural thrombus seen in the descending thoracic aorta Factors affecting care: hypertension, hyperlipidemia, sick sinus syndrome status post pacemaker Social determinants of health: none History obtained from others: none Consults: none [facility] Narrative: Patient was hemodynamically stable, afebrile and nontoxic-appearing. Primary secondary trauma surveys concerning for the following differential: I considered the following differential diagnosis: Rib fracture, myocardial contusion, pneumothorax, pulmonary contusion ALL IMAGES (IF OBTAINED) HAVE BEEN PERSONALLY REVIEWED AND INTERPRETED BY MYSELF. EKG with sinus bradycardia, left axis deviation, normal intervals, no STEMI CT of the chest read reviewed myself shows no obvious evidence of fracture dislocation of the ribs no sternal fracture. No obvious signs of pneumothorax. Tertiary trauma evaluation showed no new injury. Patient is appropriate for discharge home with incentive spirometer and strict return precautions and signs and symptoms of pneumonia. The patient and/or family, caregivers express understanding. The patient and/or family, caregivers agrees with the plan. Shared decision making: I will have a discussion with the patient and or visitors regarding risk/benefits of further testing or admission. They will be made aware of of the risk/benefits inherent in this decision they will be given the opportunity to voice understanding. Total critical care time today provided was at least 0 minutes. This excludes separately billable procedures. Critical care time (if documented) is secondary to the patient having high probability of clinically significant/life threatening deterioration in the patient's condition which required my urgent intervention. Impression: 1. Chest wall contusion 2. History of cardiac pacemaker Dispo: Discharge This note was generated with [employer] dictation software. It may contain incorrect words, spelling, and punctuation that were not noted in review of the chart prior to signing. Radiography Diagnostic Testing: Clinical Impression(s) from Imaging Studies Chest CT 04/27/24 08:12 IMPRESSION: Mild scarring at the lung bases slightly worse on the left side with some bronchiectasis. Calcified granuloma in the left lower lobe. Stable right hepatic cyst. Electronically Signed: Long Borjas MD at 8:52 EDT , Discharge Plan Triage Chief Complaint: Chest Other ED Provider: Kumar Marroquin Dx/Rx/DC Orders Instructions: ED Chest Wall Contusion Prescriptions: No Action kzwalftb-sek-PU-lycopen-lutein [Centrum Silver] 0.4-300-250 mg-mcg-mcg tablet 1 tab PO QDAY ascorbic acid (vitamin C) 1,000 mg tablet 2 g PO DAILY acetaminophen [Tylenol] 325 mg tablet 1,500 mg PO BID Rx Instructions: takes 3000mg daily (ok'd by PCP) protein shakes PO BID clopidogrel 75 MG tablet 75 mg PO DAILY lisinopril 10 MG tablet 10 mg PO DAILY simvastatin 40 mg tablet 40 mg PO DAILY calcium citrate 200 MG tablet 400 mg PO BID omega-3 fatty acids-fish oil 1 EACH capsule,delayed release(DR/EC) 300 ea PO DAILY wheat dextrin 1 EACH powder in packet 1 ea PO DAILY Primary Care Provider: Wayne Zimmerman Referrals: Wayne Zimmerman MD [Primary Care Provider] - Activity Restrictions/Additional Instructions: Thank you for trusting us with your care today! Please take Tylenol (2 pills, 650 mg), ibuprofen (2 pills, 400 mg) every 6 hours as needed for pain and fever control. Please use incentive spirometer approximately 10 times per day to encourage full lung inflation and discourage pneumonia. Please return to the emergency department if your symptoms change or worsen. Specifically if you develop cough, shortness of breath, fever, vomiting Please follow with your primary care physician for further outpatient evaluation and management. Print Language: Bengali Disposition Disposition: Home, Self Care Discharge Date/Time: 04/27/24 09:09
[2024-04-27 09:00] VITALS: BP 126/78; PULSE 64; RESP 18; TEMP 36.4; O2SAT 98
== END 2024-04-27 09:09 | disposition home or self-care (01) ==
PROVIDERS: Emergency Provider Emergency Medicine; PCP Family Medicine; Visit Provider Emergency Medicine
DX: S20.20XA Contusion of thorax, unspecified, initial encounter (principal); I49.5 Sick sinus syndrome; W18.09XA Striking against other object with subsequent fall, initial encounter; I10 Essential (primary) hypertension; E78.5 Hyperlipidemia, unspecified; I34.0 Nonrheumatic mitral (valve) insufficiency; I35.0 Nonrheumatic aortic (valve) stenosis; Z87.891 Personal history of nicotine dependence; Z95.0 Presence of cardiac pacemaker
CPT/HCPCS: 71250; 93005; 99282

== ENCOUNTER 2024-06-07 10:46 | Day surgery (SDC) | payer MEDICARE, OTHER, SELFPAY ==
--- NOTE | 2024-05-11 12:02 | RAD_ITS ---
STUDY: X-RAY CHEST REASON FOR EXAM: Male, 78 years old. For PPM generator change. TECHNIQUE: Frontal and lateral views of the chest. COMPARISON: None. FINDINGS: Mild hyperinflation. There is no demonstrated pleural abnormality. Cardiomegaly with dual lead cardiac pacer. Normal mediastinum and wallace. Normal visualized pulmonary arteries. Aortic tortuosity with calcification. Thoracic osteopenia with mild diffuse thoracic spondylosis. Normal visualized ribs, clavicles, and shoulders. No abnormality of the visualized soft tissue structures of the upper abdomen. RAD/Chest PA and Lateral IMPRESSION: Cardiomegaly with hyperinflation and no acute or active cardiopulmonary disease. Electronically Signed: Subhash Christian MD at 12:25 EDT ,
[2024-05-11 12:47] LABS: Mucous, Urine 0 SEEN /hpf (<or=2+)
[2024-05-11 13:00] LABS: Color, Urine Yellow (Yellow); Glucose, Dipstick Normal (Normal); Ketone-Dipstick Negative (Negative); Leukocyte Esterase-Dipstick 500 /ul (Negative); Nitrite-Dipstick Positive (Negative); Occult Blood-Urine 25 /ul (Negative); Protein-Dipstick 15 mg/dl (Negative); Urine Bilirubin Dipstick Negative (Negative); Urine Clarity Cloudy (Clear); Urine Urobilinogen Normal (Normal)
[2024-05-11 13:09] LABS: Hematocrit 38.5 % (40-54); Hemoglobin 12.4 g/dL (13.0-16.5); Mean Corp Hgb Conc 32.2 g/dL (32-36); Mean Corpuscular Hgb 30.5 pg (27.0-32.0); Mean Corpuscular Volume 94.8 fL (80-94); Mean Platelet Vol. 9.5 fl (6.2-12.0); Platelet Count 250 K/mm3 (150-450); RBC Distribution Width CV 12.6 % (11.6-14.6); RBC Distribution Width SD 44.1 fl (35.1-43.9); Red Blood Count 4.06 M/mm3 (4.6-6.2); White Blood Count 6.9 K/mm3 (4.4-11.0)
[2024-05-11 13:10] LABS: Bacteria 2+ /hpf (None Seen); Red Blood Cells-Urine 0-5 SEEN /hpf (0-5); Squamous Epithelial Cells - UA 0-5 SEEN /hpf (0-5); White Blood Cells 50-100 SEEN /hpf (0-5)
[2024-05-11 13:14] LABS: International Normalized Ratio 1.3; Prothrombin Time (Protime)PT. 15.7 SECONDS (11.7-14.9)
[2024-05-11 13:30] LABS: Anion Gap 7 (5-15); BUN 41 mg/dL (7-18); BUN/Creat Ratio 31.3 RATIO (10-20); Calcium,Total 9.4 mg/dL (8.5-10.1); Chloride 103 mmol/L (98-107); Creatinine, Serum 1.31 mg/dL (0.70-1.30); EST Glomerular Filtration Rate 56 mL/min (>60); Est Glom Filt Rate - Afr Amer 68 mL/min (>60); Glucose 103 mg/dL (74-106); Potassium 4.9 mmol/L (3.5-5.1); Sodium Level 135 mmol/L (136-145)
[2024-06-04 11:12] VITALS: BMI 26.9
--- NOTE | 2024-06-07 12:37 | CL.IE_ITS ---
Patient: OCHOA FUNEZ Study Date: 06/07/2024 Performing: Ayo Graham MD : 1945 Age: 78 Gender: male PROCEDURES PERFORMED [id number]-([id number])BATTERY REMOVAL+REPLACEMENT PACER-DUAL LEAD INDICATIONS Sinoatrial node dysfunction/Sick sinus syndrome PROCEDURE DETAILS The patient was brought to the Catheterization Lab in the postabsorptive nonsedated state. Informed consent was obtained prior to the procedure. Local anesthetic was given subcutaneously to the left upper chest area with Lidocaine 2%. Incision was made to the left upper chest. PPM old generator was removed. PPM new generator was attached to the lead(s) and inserted into the pocket. PPM generator was then interrogated by the operating systems programmer. Device pocket was irrigated with antibiotic, Ancef 1gm.. Subcutaneous closure was completed with 3-0 Vicryl. Skin closure was completed with 4-0 Vicryl. Steri-strips applied to Lt chest area. The patient tolerated the procedure well. Estimated Blood Loss: 10 ml's IMPLANTED / EX-PLANTED DEVICES IMPLANTED DEVICE(S): PPM Generator - Gas Manager: [employer], Model # [id number] , Serial # [id number] DEVICE PARAMETERS DEVICE PARAMETERS: Mode- DDD Lower rate- 50 Upper rate- 120 CONCLUSIONS / RECOMMENDATIONS Device Conclusions: Successful implantation of a dual chamber pacemaker battery change and replacement Device Recommendations: Follow up with Primary Care Physician PROCEDURE MEDICATIONS Fentanyl 50 mcg IV Versed 1 mg IV Versed 1 mg IV Versed 1 mg IV Oxygen: 2 L/min via nasal cannula Antibiotic given in appropriate timeframe. Ancef 2 Gm IV @ 06/07/2024 11:53:08 Signed By Ayo Graham MD On 06/07/2024 12:36:56 Ayo Graham MD
== END 2024-06-07 14:25 | disposition home or self-care (01) ==
PROVIDERS: PCP Family Medicine; Referring Provider Internal Medicine Cardiovascular Disease; Visit Provider Internal Medicine Cardiovascular Disease
DX: Z45.010 Encounter for checking and testing of cardiac pacemaker pulse generator [battery] (principal); I49.5 Sick sinus syndrome; I10 Essential (primary) hypertension; E78.5 Hyperlipidemia, unspecified; I35.0 Nonrheumatic aortic (valve) stenosis; I77.819 Aortic ectasia, unspecified site; Z87.891 Personal history of nicotine dependence
CPT/HCPCS: 33228; 36415; 71046; 80048; 81001; 85027; 85610; 99152; 99153; J7040; J7050

== ENCOUNTER → 2024-09-20 | Outpatient (CLI) | payer MEDICARE, OTHER, SELFPAY ==
--- NOTE | 2024-09-20 10:40 | ECHOD_ITS ---
Reason For Study: AV DISEASE Procedure This was a 2D Doppler, Color Flow transthoracic echocardiogram. Exam performed in department. Left Ventricle Normal LV size. Mild concentric left ventricular hypertrophy. Left ventricular systolic function is normal. Stage 1 diastolic dysfunction. The left ventricular ejection fraction is 55 %. No regional wall motion abnormalities noted. Right Ventricle Normal RV size. ICD or pacer leads identified within the right ventricle. Normal systolic function. Atria Normal left atrium. Normal right atrium. Mitral Valve Normal mitral valve. Tricuspid Valve Normal tricuspid valve. Aortic Valve Trisinus/trileaflet aortic valve. Moderate focal aortic valve calcification. Peak aortic valve gradient 14 mmHg. Mean aortic valve gradient 7 mmHg. Mild aortic stenosis. Pulmonic Valve Normal pulmonic valve. Great Vessels Calcified aortic root. The pulmonary artery is normal size. Inferior vena cava collapse with respiration. Pericardium/Pleural No pericardial effusion. MMode/2D Measurements & Calculations LVIDd: 4.6 cm IVSd: 1.3 cm LVOT diam: 2.2 cm LVIDs: 3.3 cm LVPWd: 1.4 cm LVOT area: 3.7 cm2 RVDd: 3.3 cm FS: 27.9 % Ao root diam: 3.9 cm LAV(MOD-bp): 54.6 ml LVAd ap4: 26.7 cm2 LAV(MOD-bp) Indexed: 29.1 ml/m2 LVLd ap4: 8.2 cm LAV(MOD-sp2): 53.8 ml EDV(MOD-sp4): 74.8 ml LAV(MOD-sp4): 54.1 ml EDV(sp4-el): 73.6 ml LVAs ap4: 18.0 cm2 LVLs ap4: 7.1 cm ESV(MOD-sp4): 42.6 ml ESV(sp4-el): 38.4 ml EF(MOD-sp4): 43.1 % EF(sp4-el): 47.9 % SV(MOD-sp4): 32.3 ml SV(sp4-el): 35.2 ml LA A4 area: 19.0 cm2 SI(MOD-sp4): 17.2 ml/m2 LA dimension(2D): 4.3 cm RA A4 area: 14.5 cm2 TAPSE: 2.5 cm Time Measurements MV dec time: 0.27 sec Doppler Measurements & Calculations MV E max jesus: 49.9 cm/sec Lat Peak E' Jesus: 10.1 cm/sec Med Peak E' Jesus: 5.6 cm/sec MV A max jesus: 63.6 cm/sec E/E' lat: 5.0 E/E' med: 9.0 MV E/A: 0.78 MV V2 max: 74.6 cm/sec Ao V2 max: 187.3 cm/sec MV max P.2 mmHg MV dec slope: 187.8 cm/sec2 Ao max P.0 mmHg MV V2 mean: 31.6 cm/sec Ao V2 mean: 127.5 cm/sec MV mean P.52 mmHg Ao mean P.6 mmHg MV V2 VTI: 27.1 cm Ao V2 VTI: 42.3 cm AV (velocity ratio): 0.58 MVA(VTI): 3.4 cm2 JESSICA(I,D): 2.1 cm2 JESSICA(V,D): 2.1 cm2 LV V1 max: 104.7 cm/sec SV(LVOT): 90.8 ml PA V2 max: 87.2 cm/sec LV V1 max P.4 mmHg PA V2 mean: 54.2 cm/sec LV V1 mean P.6 mmHg LV V1 mean: 76.5 cm/sec LV V1 VTI: 24.4 cm ECHO/Echo Complete Interpretation Summary Normal LV size. Left ventricular systolic function is normal. Stage 1 diastolic dysfunction. The left ventricular ejection fraction is 55 %. Moderate focal aortic valve calcification. Mean aortic valve gradient 7 mmHg. Mild aortic stenosis. Ordering Physician: Omero Worley Referring Physician: Omero Worley Performed By: Nayeli Wright RCS
== END | disposition home or self-care (01) ==
LOC: CVS 10:39
PROVIDERS: PCP Family Medicine; Referring Provider Nurse Practitioner Family; Visit Provider Nurse Practitioner Family
DX: I35.0 Nonrheumatic aortic (valve) stenosis (principal); Z95.0 Presence of cardiac pacemaker
CPT/HCPCS: 93306

== ENCOUNTER → 2024-10-19 | Outpatient (CLI) | payer MEDICARE, OTHER, SELFPAY ==
--- NOTE | 2024-10-19 07:41 | US_ITS ---
STUDY: ABDOMINAL ULTRASOUND - RIGHT UPPER QUADRANT REASON FOR VISIT: Male, 79 years old known hepatic cyst TECHNIQUE: Ultrasound evaluation of the right upper quadrant was performed with real-time and static ghosh-scale imaging. TECHNICAL QUALITY: Adequate. COMPARISON: 03/24/2023 FINDINGS: Liver: The liver measures 15.1 cm. There is normal echogenicity of the liver. The bile ducts are within normal limits. There is hepatic color flow. The direction of portal flow is hepatopetal. There is no demonstrated mass lesion, there is a stable 3.5 x 3.0 x 3.1 cm simple cyst.. Gallbladder: Normal distended gallbladder. The gallbladder wall measures 2 mm. There is a negative sonographic Gonzalez''s sign. There is no pericholecystic fluid. There are no gallstones. Common Bile Duct (C.B.D.): The common bile duct measures 6 mm. Pancreas: Normal size of the head, body and tail of the pancreas. There is normal echogenicity of the pancreas. There is no demonstrated pancreatic mass or cyst. Right Kidney: Normal size of the right kidney. The right kidney measures 10.4 x 5.3 x 4.8 cm. Normal renal cortex. The right cortex measures 1.2 cm. There is no demonstrated renal mass or cyst. There is no right hydronephrosis. US/Abdomen Limited IMPRESSION: Simple right hepatic cyst unchanged from previous studies. No specific follow-up needed. Electronically Signed: Reed Pace MD at 9:21 EST ,
== END | disposition home or self-care (01) ==
LOC: US 07:41
PROVIDERS: PCP Family Medicine; Referring Provider Family Medicine; Visit Provider Family Medicine
DX: K76.89 Other specified diseases of liver (principal)
CPT/HCPCS: 76705

== ENCOUNTER → 2025-10-03 | Outpatient (CLI) | payer MEDICARE, OTHER, SELFPAY ==
[2025-10-03 13:07] LABS: Creatinine, Urine (random) 77.30 mg/dL (39.00-259.00); Microalbumin,Random Urine < 12.0 mg/L (<20 mg/L)
== END | disposition home or self-care (01) ==
LOC: LABSPEC 11:19
PROVIDERS: PCP Family Medicine; Visit Provider Family Medicine
DX: I10 Essential (primary) hypertension (principal)
CPT/HCPCS: 82043; 82570

== ENCOUNTER → 2025-10-05 | Outpatient (CLI) | payer MEDICARE, OTHER, SELFPAY ==
--- NOTE | 2025-10-05 10:02 | ECHOD_ITS ---
Reason For Study Reason For Study: MURMUR Procedure This was a 2D Doppler, Color Flow transthoracic echocardiogram. Exam performed in department. Left Ventricle Normal LV size. The left ventricular ejection fraction is 65 %. No regional wall motion abnormalities noted. Right Ventricle Normal RV size. ICD or pacer leads identified within the right ventricle. Normal systolic function. Atria The left atrium is mildly enlarged. Normal right atrium. Mitral Valve Normal mitral valve. Tricuspid Valve Normal tricuspid valve. Mild (1+) tricuspid valve insufficiency. Pulmonary artery systolic pressure is 36 mmHg. Aortic Valve Trisinus/trileaflet aortic valve. Mild focal aortic valve calcification. Mild focal aortic valve thickening. Pulmonic Valve Normal pulmonic valve. Great Vessels Normal aortic root. The pulmonary artery is normal size. Inferior vena cava collapse with respiration. Pericardium/Pleural No pericardial effusion. MMode/2D Measurements & Calculations LVIDd: 5.0 cm IVSd: 0.73 cm LVOT diam: 2.0 cm LVIDs: 2.7 cm LVPWd: 0.82 cm LVOT area: 3.1 cm2 RVDd: 4.5 cm FS: 45.1 % Ao root diam: 4.0 cm asc Aorta Diam: 4.4 cm LAV(MOD- bp): 64.3 ml LAV(MOD- bp) Indexed: 32.8 ml/m2 LAV(MOD- sp2): 54.9 ml LAV(MOD- sp4): 74.3 ml SV(MOD- sp4): 44.8 ml LVAd ap4: 25.1 cm2 LVAd ap2: 28.4 cm2 LVLd ap4: 8.1 cm LVLd ap2: 8.5 cm SI(MOD- sp4): 22.9 ml/m2 EDV(MOD-sp4): 66.6 ml EDV(MOD-sp2): 82.3 ml EDV(sp4-el): 65.6 ml EDV(sp2-el): 80.2 ml LVAs ap4: 12.0 cm2 LVAs ap2: 14.1 cm2 LVLs ap4: 6.3 cm LVLs ap2: 6.9 cm ESV(MOD-sp4): 21.8 ml ESV(MOD-sp2): 26.1 ml ESV(sp4-el): 19.3 ml ESV(sp2-el): 24.6 ml EF(MOD-sp4): 67.3 % EF(MOD-sp2): 68.3 % EF(sp4-el): 70.6 % SV(MOD-sp2): 56.2 ml SV(sp4-el): 46.3 ml LA A4 area: 22.4 cm2 SI(MOD-sp2): 28.7 ml/m2 LA dimension(2D): 4.0 cm TAPSE: 2.4 cm RA A4 area: 20.4 cm2 Time Measurements MV dec time: 0.30 sec Doppler Measurements & Calculations MV E max jesus: 57.0 cm/sec Lat Peak E' Jesus: 5.9 cm/sec Med Peak E' Jesus: 5.7 cm/sec MV A max jesus: 49.4 cm/sec E/E' lat: 9.7 E/E' med: 10.0 MV E/A: 1.2 MV dec slope: 187.9 cm/sec2 Ao V2 max: 239.5 cm/sec LV V1 max: 96.2 cm/sec Ao max P.0 mmHg LV V1 max P.7 mmHg Ao V2 mean: 170.0 cm/sec LV V1 mean P.1 mmHg Ao mean P.0 mmHg LV V1 mean: 67.6 cm/sec Ao V2 VTI: 53.9 cm LV V1 VTI: 20.1 cm AV (velocity ratio): 0.37 JESSICA(I,D): 1.2 cm2 JESSICA(V,D): 1.2 cm2 SV(LVOT): 62.4 ml PA V2 max: 80.2 cm/sec TR max jesus: 282.9 cm/sec TR max P.0 mmHg ECHO/Echo Complete Interpretation Summary Normal LV size. The left ventricular ejection fraction is 65 %. Pulmonary artery systolic pressure is 36 mmHg. Normal RV size. No regional wall motion abnormalities noted. Ordering Physician: Miller Diaz Referring Physician: Wayne Zimmerman Performed By: Catherine Adair RDCS
== END | disposition home or self-care (01) ==
LOC: CVS 09:58
PROVIDERS: PCP Family Medicine; Referring Provider Internal Medicine Cardiovascular Disease; Visit Provider Internal Medicine Cardiovascular Disease
DX: I35.0 Nonrheumatic aortic (valve) stenosis (principal)
CPT/HCPCS: 93306